=== PATIENT | male | born 1945 | race Caucasian/White ===

== ENCOUNTER 2020-06-01 07:31 | Day surgery (SDC) | payer MEDICARE ==
[2020-05-25 14:52] LABS: BASOPHILS # (AUTO) 0.1 X10'3 (0-0.2); EOSINOPHILS # (AUTO) 0.2 X10'3 (0-0.9); EOSINOPHILS % (AUTO) 3.5 % (0-6); LYMPHOCYTES # (AUTO) 2.1 X10'3 (1.1-4.8); LYMPHOCYTES % (AUTO) 30.6 % (21-51); MEAN CORPUSCULAR HEMOGLOBIN 31.8 PG (27.0-31.0); MEAN CORPUSCULAR HGB CONC 33.6 g/dL (33.0-36.5); MEAN CORPUSCULAR VOLUME 94.5 FL (78-98); MONOCYTES # (AUTO) 0.4 X10'3 (0-0.9); MONOCYTES % (AUTO) 6.1 % (2-12); NEUTROPHILS % (AUTO) 58.8 % (42-75); PRE OP HEMATOCRIT 48.5 % (42.0-52.0); PRE OP HEMOGLOBIN 16.3 g/dL (14.0-17.9); PRE OP PLATELET COUNT 198 X10'3 (140-440); RED BLOOD COUNT 5.13 X10'6 (4.70-6.10); RED CELL DISTRIBUTION WIDTH 13.4 % (11.5-14.5)
[2020-05-25 14:54] LABS: PRE OP PROTIME 20.4 SECONDS (9.0-12.0)
[2020-05-25 14:55] LABS: PRE OP INR 2.1 INR
[2020-05-25 14:56] LABS: ALBUMIN 3.7 G/DL (3.4-5.0); ALKALINE PHOSPHATASE 69 IU/L (46-116); BLOOD UREA NITROGEN 19 MG/DL (7-18); BUN/CREATININE RATIO 16.8 (5.4-32.0); CALCIUM 9.1 MG/DL (8.5-10.1); CHLORIDE 109 MMOL/L (99-107); CREATININE 1.13 MG/DL (0.60-1.10); PRE OP ALT 32 U/L (30-65); PRE OP ANION GAP 7 (8-16); PRE OP AST 30 U/L (10-37); PRE OP BILIRUB, TOTAL 0.8 MG/DL (0.0-1.0); PRE OP GLUCOSE 92 MG/DL (70-104); PRE OP POTASSIUM 4.3 MMOL/L (3.4-5.1); PRE OP SODIUM 142 MMOL/L (135-145); TOTAL CARBON DIOXIDE 26.1 MMOL/L (24-32); TOTAL PROTEIN 7.3 G/DL (6.4-8.2); eGFR 63 ML/MIN
[~2020-06-01] VITALS: Ht 165.1 cm; Wt 87.2 kg
[2020-06-01] VITALS (9 sets, daily range): BP systolic 113–139; BP diastolic 76–82
[~2020-06-01 07:31] MED LIST: BUPIVAcaine/PF 2.5mg/ml (0.25%) 10ml vial ONE; CEPH500C5 PO; CRAN450T4 PO; DIPH-522; DONE10TA44 PO; FLO0.4C PO; MAGN400C PO; NUTRAVIEW; POTA2TAB6 PO; PROSTAVAN; REPLENEX; SUPER B COMPLEX; VITAMIN C; VITAMIN E; WARF1TAB83 PO; ceFAZolin 2gm in dextrose, iso 50 ML IV ONE; famotidine 20mg tablet PO ONE; ringers solution, lacted 1,000 ML IV SCH
[2020-06-01] MEDS ORDERED: LIDOcaine 0.5% (5mg/ml) 50ml vial ONE (08:14)
[2020-06-01] MEDS ORDERED: ringers solution, lacted 1,000 ML IV SCH (09:33)
[2020-06-01] MEDS ORDERED: proCHLORperazine 10 MG/2 ml inj IV PRN (09:35)
[2020-06-01] MEDS ORDERED: meperidine/PF 25mg/ml syringe IV PRN ×3 (09:35)
[2020-06-01] MEDS ORDERED: ondansetron/PF 4mg/2ml inj IV PRN (09:35)
[2020-06-01] MEDS ORDERED: morphine 4 MG/ML inj SYRINge IV PRN (09:35)
[2020-06-01] MEDS ORDERED: morphine 2 MG/ML inj. syringe IV PRN (09:35)
[2020-06-01] MEDS ORDERED: fentaNYL/PF 50MCG/1 ML 2ML syringe ONE (09:41)
[2020-06-01] MEDS ORDERED: midazolam 2 mg/2 ml injection ONE (09:41)
--- NOTE | 2020-06-01 10:01 | NUR ---
RECEIVED FROM OR VIA [facility] ACCOMPANIED BY ANESTHESIOLOGIST DR SHEN, REPORT GIVEN. PT AWAKE AND ALERT AND DENIES PAIN AT THIS TIME. 20 GAUGE PIV L FA PATENT AND RUNNING LR AT 100 ML/HR. R HAND DRESSING CDI. RAMEY, VSS, GOOD CAP REFILL, PERIPHERAL PULSES PRESENT, R RADIAL COVERED BY DRESSING. ABD SOFT, PT RESTING COMFORTABLY AT THIS TIME
--- NOTE | 2020-06-01 11:11 | NUR ---
PT AWAKE AND ALERT AND DENIES PAIN AT THIS TIME. 20 GAUGE PIV L FA DC/D CATH TIP INTACT. R HAND DRESSING CDI. RAMEY, VSS, GOOD CAP REFILL, PERIPHERAL PULSES PRESENT, R RADIAL COVERED BY DRESSING. ABD SOFT. TOLERATING FLUIDS, ABLE TO DRESS SELF, AMBULATE AND VOID. DISCHARGE INSTRUCTIONS GIVEN AND PT VERBALIZED UNDERSTANDING. TRANSPORTED VIA WHEELCHAIR TO SPOUSE IN PERSONAL VEHICLE TO HOME.
== END 2020-06-01 11:11 | disposition home or self-care (01) ==
LOC: PAS 07:31
PROVIDERS: ATTEND Orthopaedic Surgery Hand Surgery
DX: G56.01 Carpal tunnel syndrome, right upper limb (principal); Z11.59 Encounter for screening for other viral diseases; Z79.899 Other long term (current) drug therapy; Z90.49 Acquired absence of other specified parts of digestive tract; Z98.890 Other specified postprocedural states; Z85.038 Personal history of other malignant neoplasm of large intestine
CPT/HCPCS: 36415; 64721; 80053; 82948; 85025; 85610; 85730; A6222; J2001; J2250; J3010; J3490; U0003; A4215; A6449; J7120

== ENCOUNTER 2020-06-29 07:00 | Day surgery (SDC) | payer MEDICARE ==
[2020-06-29] VITALS (8 sets, daily range): BP systolic 102–127; BP diastolic 60–67
[~2020-06-29] VITALS: Ht 165.1 cm; Wt 85.1 kg
[~2020-06-29 07:00] MED LIST changes: -BUPIVAcaine/PF 2.5mg/ml (0.25%) 10ml vial ONE
[2020-06-29] MEDS ORDERED: LIDOcaine 1% 30ml preserv. free vial ONE (07:40)
[2020-06-29 08:03] LABS: BASOPHILS # (AUTO) 0.1 X10'3 (0-0.2); BASOPHILS % (AUTO) 0.9 % (0-1); EOSINOPHILS # (AUTO) 0.2 X10'3 (0-0.9); EOSINOPHILS % (AUTO) 2.9 % (0-6); LYMPHOCYTES # (AUTO) 2.1 X10'3 (1.1-4.8); LYMPHOCYTES % (AUTO) 29.7 % (21-51); MEAN CORPUSCULAR HEMOGLOBIN 31.9 PG (27.0-31.0); MEAN CORPUSCULAR HGB CONC 33.6 g/dL (33.0-36.5); MEAN CORPUSCULAR VOLUME 94.9 FL (78-98); MEAN PLATELET VOLUME 7.1 FL (7.4-10.4); MONOCYTES # (AUTO) 0.5 X10'3 (0-0.9); MONOCYTES % (AUTO) 6.8 % (2-12); NEUTROPHILS # (AUTO) 4.1 X10'3 (1.8-7.7); NEUTROPHILS % (AUTO) 59.7 % (42-75); PRE OP HEMATOCRIT 50.8 % (42.0-52.0); PRE OP HEMOGLOBIN 17.1 g/dL (14.0-17.9); PRE OP PLATELET COUNT 183 X10'3 (140-440); RED BLOOD COUNT 5.35 X10'6 (4.70-6.10); RED CELL DISTRIBUTION WIDTH 13.7 % (11.5-14.5)
[2020-06-29] MEDS ORDERED: ringers solution, lacted 1,000 ML IV SCH (08:13)
[2020-06-29] MEDS ORDERED: proCHLORperazine 10 MG/2 ml inj IV PRN (08:15)
[2020-06-29] MEDS ORDERED: meperidine/PF 25mg/ml syringe IV PRN ×3 (08:15)
[2020-06-29] MEDS ORDERED: morphine 2 MG/ML inj. syringe IV PRN (08:15)
[2020-06-29] MEDS ORDERED: morphine 4 MG/ML inj SYRINge IV PRN (08:15)
[2020-06-29] MEDS ORDERED: ondansetron/PF 4mg/2ml inj IV PRN (08:15)
[2020-06-29 08:18] LABS: ALBUMIN 3.9 G/DL (3.4-5.0); ALBUMIN/GLOBULIN RATIO 1.1 (1.1-1.5); ALKALINE PHOSPHATASE 65 IU/L (46-116); BLOOD UREA NITROGEN 24 MG/DL (7-18); BUN/CREATININE RATIO 19.5 (5.4-32.0); CALCIUM 9.3 MG/DL (8.5-10.1); CHLORIDE 103 MMOL/L (99-107); CREATININE 1.23 MG/DL (0.60-1.10); PRE OP ALT 30 U/L (30-65); PRE OP ANION GAP 11 (8-16); PRE OP AST 31 U/L (10-37); PRE OP BILIRUB, TOTAL 1.3 MG/DL (0.0-1.0); PRE OP GLUCOSE 98 MG/DL (70-104); PRE OP POTASSIUM 4.8 MMOL/L (3.4-5.1); PRE OP SODIUM 138 MMOL/L (135-145); TOTAL CARBON DIOXIDE 24.3 MMOL/L (24-32); TOTAL PROTEIN 7.5 G/DL (6.4-8.2); eGFR 57 ML/MIN
[2020-06-29 08:23] LABS: PRE OP PROTIME 18.9 SECONDS (9.0-12.0)
[2020-06-29 08:29] LABS: PRE OP INR 1.9 INR
[2020-06-29] MEDS ORDERED: BUPIVAcaine/PF 2.5mg/ml (0.25%) 10ml vial ONE (08:54)
[2020-06-29] MEDS ORDERED: fentaNYL/PF 50MCG/1 ML 2ML syringe ONE (09:06)
[2020-06-29] MEDS ORDERED: midazolam 2 mg/2 ml injection ONE (09:06)
[2020-06-29] MEDS ORDERED: ketorolac trometh. 30mg/ml inj. ONE (09:34)
--- NOTE | 2020-06-29 09:37 | NUR ---
Received from OR via [facility] , accompanied by Anesthesiologist TRIP and report given by Anesthesiolgist. NO PAIN.VSS, IV PATENT. FINGERS MOVE AND ARE WARM WITH BRISK CAP REFILL.
--- NOTE | 2020-06-29 10:27 | NUR ---
DC TO HOME VIA PRIVATE CAR. DRIVING.NO PAIN, VSS, IV OUT. FINGERS WARM, MOVE AND HAVE BRISK CAP REFILLS. DSG CDI.
== END 2020-06-29 10:27 | disposition home or self-care (01) ==
LOC: PAS 07:00
PROVIDERS: ATTEND Orthopaedic Surgery Hand Surgery
DX: G56.02 Carpal tunnel syndrome, left upper limb (principal); J44.9 Chronic obstructive pulmonary disease, unspecified; G47.30 Sleep apnea, unspecified; Z85.038 Personal history of other malignant neoplasm of large intestine; Z98.890 Other specified postprocedural states; Z72.89 Other problems related to lifestyle; Z87.01 Personal history of pneumonia (recurrent); Z79.01 Long term (current) use of anticoagulants; Z90.49 Acquired absence of other specified parts of digestive tract; Z79.899 Other long term (current) drug therapy
CPT/HCPCS: 36415; 64721; 80053; 85025; 85610; 85730; J1885; J2001; J2250; J3010; J3490; A4215; J7120